=== PATIENT | female | born 1975 | race Caucasian/White ===

== ENCOUNTER → 2017-04-09 | Outpatient (CLI) | payer OTHER ==
[~2017-04-09] MED LIST: B12 INJ.,1000 MCG/M IM; CARAFATE 1GM TAB1 GM PO; CYMBALTA30 MG PO; FLAGYL 500MG.500 MG PO; FLINTSTONES1 CTB PO; GICOCKTAIL PO; HYDROCODONE/ACE1 TA5 PO; NEXIUM40 MG PO; OMEPRAZOLE20 MG PO; PERCOCET 5/3251 EACH PO; PINK BISMUTH262 MG PO; PROTONIX 40MG T40 MG PO; TETRACYCLINE250 MG PO; TRAMADOL 50MG T50 MG PO; TYLENOL 325MG325 MG PO; ZEGERID 20 MG-11 CAP PO; ZOFRAN4 MG PO
[2017-04-09 09:57] LABS: LYMPH # 2.2 K/mm3 (0.7-4.5); LYMPH % 27.6 % (10-50.0)
[2017-04-09 10:12] LABS: HEMOGLOBIN 14.5 g/dL (12.2-16.2)
[2017-04-09 11:02] LABS: BUN 9 mg/dL (7-18)
[2017-04-09 11:07] LABS: GFR (ESTIMATED) 111 ML/MIN (59-)
== END ==
LOC: LAB 09:36
PROVIDERS: Surgery
DX: L72.3 Sebaceous cyst (principal); Z01.812 Encounter for preprocedural laboratory examination

== ENCOUNTER 2017-04-12 10:10 | Day surgery (SDC) | payer OTHER ==
[~2017-04-12] VITALS: Ht 162.6 cm; Wt 117.5 kg
--- NOTE | 2017-04-12 14:15 | Operative Note ---
Surgeon/Diagnoses Surgeon/Bacon De Rinder(s) Date of procedure: 04/12/17 Surgeon: MD Olga Downey Diagnoses Pre-op diagnosis: 1.5 cm RIGHT scalp cyst Post-op diagnosis same Procedure Procedure Procedure: Excision of 1.5 cm RIGHT scalp cyst Indications: HAYLEY BATEMAN is a 42 year-old Female with a history of painful 1.5 cm RIGHT scalp cyst. Findings: 1.5 cm cyst excised in toto. Procedure Description: After informed consent was obtained, the patient was taken to the operating room and placed in the supine position. General anesthesia was induced and her RIGHT scalp was prepped and draped in a sterile fashion. After infiltration with local anesthetic an elliptical incision was made utilizing cautery. The deeper subcutaneous tissue was dissected with cautery and the entire cystic lesion was excised and passed off for pathologic evaluation. Electrocautery was also utilized to achieve hemostasis and skin was closed with 4-0 nylon in an interrupted fashion. Dressings were applied and the patient was transferred to recovery in stable condition. EBL (ml): 5 Anesthesia: General Complications: No immediate Specimens: 1.5 cm RIGHT scalp cyst Disposition Disposition: Stable to recovery from where she will be discharged home. She will follow-up in one week. at 1448
--- NOTE | 2017-04-12 14:21 | Anesthesia Record ---
Anesthesia Record Part II Discharge time: 1445 Destination: Same day surgery PACU nurse assessment review? Yes Patient is: Stable Anesthesia complications? No at 1423
--- NOTE | 2017-04-12 14:21 | Anesthesia Record ---
Anesthesia Record Part I Total IV fluids: 800 EBL (ml): 5 Urine Output: 0 B/P: 126/81 % SaO2: 95 Pulse: 70 Resps: 16 Temp: 98.3 Patient is: Drowsy, Stable Stable to PACU at: 1415 at 1420
[2017-04-12 16:05] VITALS: BP 107/71
== END 2017-04-12 15:40 | disposition home or self-care (01) ==
LOC: SDC 10:10
PROVIDERS: Surgery
PROC: 0HB0XZZ Excision of Scalp Skin, External Approach (ICD-10-PCS; principal; 2017-04-12 11:30)
DX: L72.3 Sebaceous cyst (principal)
CPT/HCPCS: J2405; S0077